=== PATIENT | female | born 1950 | race Caucasian/White ===

== ENCOUNTER 2018-01-10 07:30 | Inpatient (IN) | payer OTHER, MEDICARE ==
[2018-02-14] MEDS ORDERED: ACETAMINOPHEN 500 MG TAB PO ONE (06:10)
[2018-02-14] MEDS ORDERED: GABAPENTIN 300 MG CAP PO ONE (06:10)
[2018-02-14] MEDS ORDERED: ceFAZolin 2 GM/DEXTROSE 100 ML IV ONE (06:10)
[2018-02-14] MEDS ORDERED: LR 1,000 ML IV ONE (06:11)
[2018-02-14] MEDS ORDERED: CHLORHEXIDINE GLUC HIBICLENS 118 ML BTL TP ONE (06:36)
[2018-02-14] MEDS ORDERED: EPINEPHrine 1 MG/ML INJ ONE (06:36)
[2018-02-14] MEDS ORDERED: THROMBIN (BOVINE) 5,000 UNIT VIAL TP ONE (06:36)
[2018-02-14] MEDS ORDERED: BUPIVACAINE 0.25% 30 ML SDV ONE (06:36)
[2018-02-14] MEDS ORDERED: BACITRACIN 50,000 UNITS/10 ML SYR IRR ONE ×2 (06:36→09:16)
--- NOTE | 2018-02-14 06:45 | PDHPUP ---
History & Physical Update H&P update statement: This history and physical update is based on an assessment of the patient which was completed after admission or registration (within 24 hours), but prior to the surgery/procedure. H&P update: H&P reviewed & patient examined, no change in patient's condition since H&P completed
[2018-02-14] MEDS ORDERED: MIDAZOLAM 2 MG/2 ML VIAL IVP ONE (07:01)
--- NOTE | 2018-02-14 07:03 | PDANEPAE ---
ANE History of Present Illness L4-5 TLIF ANE Past Medical History - Cardiovascular History Hx Hypertension: No Hx Arrhythmias: No Hx Chest Pain: No Hx Coronary Artery / Peripheral Vascular Disease: No Hx CHF / Valvular Disease: No Hx Palpitations: No Cardiovascular History Comment: blood pressure is normal but went very low after surgery 05/2017 - Pulmonary History Hx COPD: No Hx Asthma/Reactive Airway Disease: No Hx Recent Upper Respiratory Infection: No Hx Oxygen in Use at Home: No Hx Sleep Apnea: No Sleep Apnea Screening Result - Last Documented: Negative Pulmonary History Comment: chronic cough from reflux - Neurologic History Hx Cerebrovascular Accident: No Hx Seizures: No Hx Dementia: No Neurologic History Comment: cervical stenosis causes neck pain at times - Endocrine History Hx Diabetes: No - Renal History Hx Renal Disorders: No - Liver History Hx Hepatic Disorders: No - Neurological & Psychiatric Hx Hx Neurological and Psychiatric Disorders: Yes Neurological / Psychiatric History Comment: tends to be anxious- no diagnosis - Cancer History Hx Cancer: No - Congenital Disorder History Hx Congenital Disorders: No - GI History Hx Gastrointestinal Disorders: Yes Gastrointestinal History Comment: reflux- chronic cough from - Other Health History Other Health History: wears bilateral hearing aides. wears glasses. old torn rtc on right. weak and painful left big toe when walking - Chronic Pain History Chronic Pain: Yes (lower back and legs and some neck) - Surgical History Prior Surgeries: [facility] ANE Review of Systems Review of Systems: - Exercise capacity METS (RN): 4 METS ANE Patient History - Allergies Allergies/Adverse Reactions: thimerosal Allergy (Verified 01/29/18 16:04) From contact lens solution - eyes red/itchy - Home Medications Home medications: home medication list seen and reviewed Home Medications: Ascorbic Acid [Vitamin C 500 mg (*)] 1,000 mg PO BID 01/22/18 [Last Taken ] C/E/Zn/Cu/OM3/DHA/EPA/LUT/ZEAX [Preservision Areds 2 Softgel] 1 each PO BID [Last Taken 02/07/18] Cholecalciferol Vit D3 [Vitamin D3 (*)] 1,000 units PO DAILY 01/22/18 [Last Taken 02/07/18] Eszopiclone [Lunesta] 2 mg PO HS 01/22/18 [Last Taken 02/13/18] Herbals/Supplements -Info Only 1 ea PO DAILY 01/22/18 [Last Taken 02/07/18] traZODone [traZODONE 50MG (*)] 100 - 150 mg PO HS 01/22/18 [Last Taken Unknown] - NPO status NPO Since - Liquids (Date): 02/14/18 NPO Since - Liquids (Time): 07:00 NPO Since - Solids (Date): 02/13/18 - Smoking Hx Smoking Status: Never smoked - Family Anes Hx Family Hx Anesthesia Complications: none ANE Labs/Vital Signs - Vital Signs Height: 166.37 cm Weight: 70.307 kg ANE Physical Exam - Airway Neck exam: FROM Mallampati Score: Class 2 Mouth exam: normal dental/mouth exam - Pulmonary Pulmonary: no respiratory distress - Cardiovascular Cardiovascular: regular rate and rhythym - ASA Status ASA Status: II ANE Anesthesia Plan Anesthesia Plan: general endotracheal anesthesia Lines/Monitors: additional IV
[2018-02-14] MEDS ORDERED: fentaNYL 100 MCG/2 ML INJ ONE ×2 (07:06→11:04)
[2018-02-14] MEDS ORDERED: ROCURONIUM 50 MG/5 ML VIAL ONE ×2 (07:06→07:10)
[2018-02-14] MEDS ORDERED: PROPOFOL/EMULSION 500 MG/50 ML BOTTLE IV ONE (07:06)
[2018-02-14] MEDS ORDERED: REMIFENTANIL HCL 1 MG VIAL ONE (07:06)
[2018-02-14] MEDS ORDERED: LIDOCAINE 2% 2 ML INJ ONE ×2 (07:11)
[2018-02-14] MEDS ORDERED: ONDANSETRON 4 MG/2 ML VIAL ONE (07:12)
[2018-02-14] MEDS ORDERED: DEXAMETHASONE 4 MG/ML VIAL ONE (07:12)
[2018-02-14] MEDS ORDERED: POLYETHYLENE GLYCOL 3350 17 GM PKT PO PRN (07:20)
[2018-02-14] MEDS ORDERED: diphenhydrAMINE 25 MG CAP PO PRN (07:20)
[2018-02-14] MEDS ORDERED: ONDANSETRON 4 MG/2 ML VIAL IVP PRN ×2 (07:20→10:38)
[2018-02-14] MEDS ORDERED: BISACODYL 10 MG SUPP PR PRN (07:20)
[2018-02-14] MEDS ORDERED: HYDROmorphone HCL 0.5 MG/0.5 ML SYR IVP PRN (07:20)
[2018-02-14] MEDS ORDERED: LACTULOSE 20 GM/30 ML UDCUP PO PRN (07:20)
[2018-02-14] MEDS ORDERED: ONDANSETRON DISINTEGRATING 4 MG TAB PO PRN (07:20)
[2018-02-14] MEDS ORDERED: MAGNESIUM HYDROXIDE 30 ML UDCUP PO PRN (07:20)
[2018-02-14] MEDS ORDERED: NS 1,000 ML IV SCH (07:30)
[2018-02-14] MEDS ORDERED: ePHEDrine SULFATE 25 MG/5 ML SYR ONE (07:51)
--- NOTE | 2018-02-14 08:01 | POSTANESTH ---
Post Anesthetic Evaluation Cardiovascular Status: Normal, Stable Respiratory Status: Normal, Stable Level of Consciousness/Mental Status: Can Participate in Eval, Mildly Sleepy, Arousable Pain Control: Adequate, Prn Tx Ordered Nausea/Vomiting Control: Adequate, Prn Tx Ordered Complications Possibly Related to Anesthesia: None Noted
[2018-02-14] MEDS ORDERED: PHENYLEPHRINE HCL 100 MCG/ML SYR ONE ×2 (08:28→10:02)
[2018-02-14] MEDS ORDERED: HYDROmorphONE/DILAUDID 2 MG/ML INJ ONE (08:29)
[2018-02-14] MEDS ORDERED: PROPOFOL 200 MG/20 ML VIAL ONE (09:12)
[2018-02-14] MEDS ORDERED: DIAZEPAM 5 MG/ML 1 ML SYR IVP PRN (10:38)
[2018-02-14] MEDS ORDERED: oxyCODONE IR 5 MG TAB PO PRN (10:38)
[2018-02-14] MEDS ORDERED: LABETALOL HCL 5 MG/ML 20 ML MDV IVP PRN (10:38)
[2018-02-14] MEDS ORDERED: PHENYLEPHRINE HCL 100 MCG/ML SYR IVP PRN (10:38)
[2018-02-14] MEDS ORDERED: LR 500 ML IV PRN (10:38)
[2018-02-14] MEDS ORDERED: ACETAMINOPHEN 500 MG TAB PO PRN (10:38)
[2018-02-14] MEDS ORDERED: NALOXONE HCL 0.4 MG/ML INJ IVP PRN (10:38)
[2018-02-14] MEDS ORDERED: PROMETHAZINE HCL 25 MG/ML INJ IVP PRN (10:38)
[2018-02-14] MEDS ORDERED: ALBUTEROL 3 ML DEYVIAL IH PRN (10:38)
[2018-02-14] MEDS: fentaNYL 100 MCG/2 ML INJ IVP PRN ×2 (11:06→11:12)
--- NOTE | 2018-02-14 11:06 | SOAPPROG ---
SOAP Progress Note Assessment/Plan: Post Op Visit: S: Awake and alert. Pt with expected lower back pain O: AFVSS/PERRLA/EOMI no droop CN 2-12 grossly intact +lt touch 5/5 BUE/BLE = CDI BETHANY in place and working well A/P: 67 yo female that is s/p TLIF at L4/5 -orders in place -brace when out of bed -call with any questions or concerns -pt understands and agrees -no bending or twisting 02/14/18 11:04 ICD10 Worksheet Patient Problems: Problems Problem Status Onset Arthrodesis status Acute Lumbar radicular pain Acute Lumbar stenosis Acute - ICD10 Problem Qualifiers (1) Lumbar radicular pain (2) Lumbar stenosis (3) Arthrodesis status
--- NOTE | 2018-02-14 11:07 | POSTOPPROG ---
Post Op Note Date of Operation: 02/14/18 Surgeon: Luis A Kapoor Infrastructure Software Engineer: Gaby Anesthesia: GET(General Endotracheal), Local (Specify) Pre-op Diagnosis: lumbar stenosis L4/5 Post-op Diagnosis: Lumbar stenosis L4/5 Indication: lumbar radiculopathy/stenosis Procedure: TLIF L4/5 Findings: none Inf/Abcess present in the surg proc area at time of surgery?: No Depth: Deep Incisional (Fascial) EBL: 100-500 Drains: Armaan White
[2018-02-14] MEDS ORDERED: HYDROmorphONE/DILAUDID 1 MG/ML INJ ONE (11:13)
[2018-02-14] MEDS: HYDROmorphONE/DILAUDID 2 MG/ML INJ IVP PRN ×2 (11:15→11:26)
[2018-02-14] MEDS ORDERED: DIAZEPAM 5 MG/ML 1 ML SYR ONE (11:30)
[2018-02-14] MEDS ORDERED: HYDROmorphONE/DILAUDID 1 MG/ML INJ IVP PRN (11:30)
[2018-02-14] MEDS ORDERED: oxyCODONE IR 5 MG TAB ONE (11:51)
--- NOTE | 2018-02-14 13:14 | PDMN ---
Medical Necessity Medical necessity: [facility] IP only surgery; cpt 50939 Lumbar Fusion (L4/5 TLIF)
[2018-02-14] MEDS: SENNOSIDES/DOCUSATE SODIUM TAB PO SCH ×2 (15:12→21:44)
[2018-02-14] MEDS: FAMOTIDINE 20 MG TAB PO SCH ×2 (15:12→21:42)
[2018-02-14] MEDS: ACETAMINOPHEN 500 MG TAB PO SCH ×2 (15:18→21:42)
[2018-02-14] MEDS: GABAPENTIN 300 MG CAP PO SCH ×3 (15:21→23:33)
[2018-02-14] MEDS: ceFAZolin 2 GM/DEXTROSE 100 ML IV SCH ×2 (17:34→23:25)
[2018-02-14] MEDS: oxyCODONE IR 5 MG TAB PO PRN (18:41)
[2018-02-14] MEDS ORDERED: ZOLPIDEM TARTRATE 5 MG TAB PO SCH (21:00)
[2018-02-14] MEDS: traZODone 50 MG TAB PO SCH (21:44)
[2018-02-14] MEDS: ESZOPICLONE 2 MG PO SCH (21:45)
--- NOTE | 2018-02-15 05:02 | GOP ---
DATE OF OPERATION: 02/14/2018 SURGEON: Fracisco Kapoor MD RN ALLERGY: Johnathan Griffin PA-C. PREOPERATIVE DIAGNOSIS: Lumbar spondylolisthesis, L4-5. Severe stenosis, L4-5. Bilateral lumbosacr al radiculopathy, L4-5. POSTOPERATIVE DIAGNOSIS: Lumbar spondylolisthesis, L4-5. Severe stenosis, L4-5. Bilateral lumbosacr al radiculopathy, L4-5. PROCEDURE PERFORMED: Posterolateral intervertebral arthrodesis with bilateral decompressions, L4-5 ( 71653); posterior nonsegmental instrumentation across a single interspace L4-5 (43543); spinal stereo taxis, placement of biomechanical intervertebral device, L4-5, same incision bone graft harvest, micr oscope. FINDINGS: Consistent with the MRI. ESTIMATED BLOOD LOSS: Less than 100 cc. INDICATIONS: The patient is a 67-year-old who had bilateral lumbosacral radiculopathy and severe emmanuel n radiating down both legs, whose MRI demonstrated a spondylolisthesis at L4-5, severe stenosis at th at level and I suggested a single-level fusion with bilateral decompressions. The risk of continued symptoms was discussed. She knew there was a chance surgery would fail to eliminate the pain. She k new there was a risk of nerve injury, spinal fluid leak, infection, pseudoarthrosis, and adjacent seg ment disease. She wanted to proceed despite these risks. DESCRIPTION OF PROCEDURE: The patient was taken to the operating room, placed in supine position. G eneral anesthesia was begun. She was flipped prone onto the Armaan table. Care was taken to pad al l points of contact. Her back was sterilely prepped and draped in usual fashion. A localizing x-ray was taken. We made a midline incision. It was approximately 4 cm in length. The subcutaneous tiss ue was dissected using Bovie cautery down to the fascia and subperiosteal dissection was made down th e L4-5 lamina. Self-retaining retractor was placed. We shot a localizing x-ray. We denuded the tyson ateral hypertrophic L4-5 facet joint, decorticated transverse processes at L4-5. We attached the John alth reference frame to the L4 spinous process. We performed an O-arm spin and using frame of the [facility] stereotaxy, we placed pedicle screws bilaterally at L4 and L5. They all stimulated at acceptab le levels. The screws were in excellent position. We placed rods down over the screws and did not r eally distract. We simply tightened the rods down on the tulips. Her bone was quite soft when placi ng the screws and we did not want to distract. As we tightened the set screws down over the rods, th ere was some reduction of her spondylolisthesis and we were happy with the way the x-rays looked. We removed all the soft tissue from the bone at L4-5, harvested the inferior L4 spinous process for aut ologous grafting purposes. We drilled bilateral L4 laminectomy and harvested this bone for autologou s grafting purposes. Under the microscope, we opened the ligamentum flavum and decompressed the thec al sac. There was severe stenosis on each side. The dura had an hourglass appearance of the area ju st above and at the level of the L5 pedicle. We got a great decompression. We then swept the nerve root medially, incised the L4-5 disk and removed the disk and the cartilaginous endplates at L4-5. W e roughened the subchondral bone to create arthrodesis and chose a 7 x 23 mm device. We inserted it at L4-5, expanded it under fluoroscopic guidance. Bone morphogenic protein was placed in the disk sp dawna. 1 mg was placed there. 1 mg was placed posterolaterally. Bone autograft was also placed in th e disk space. We placed bone autograft posterolaterally after decorticating all the posterolateral b one. We then placed a subfascial drain, closed the incision in multiple layers using Vicryl sutures. Final x-rays were taken. All hardware was in excellent position. There were no complications. COMPLICATIONS: None. INSTRUMENTATION USED: Solera 5.5 mm system with titanium rods, extra-small bone morphogenic protein and a 7 x 23 mm Elevate cage, all manufactured by [employer]. COMPLICATIONS: None. /[id number]/MODL
[2018-02-15] MEDS: ACETAMINOPHEN 500 MG TAB PO SCH ×3 (05:12→22:02)
[2018-02-15] MEDS: SENNOSIDES/DOCUSATE SODIUM TAB PO SCH ×2 (08:20→20:37)
[2018-02-15] MEDS: METHOCARBAMOL 750 MG TAB PO PRN ×2 (08:20→14:30)
[2018-02-15] MEDS: FAMOTIDINE 20 MG TAB PO SCH ×2 (08:20→20:37)
[2018-02-15] MEDS ORDERED: CALCIUM CARBONATE 500 MG CHEWABLE TAB PO PRN (09:26)
--- NOTE | 2018-02-15 09:30 | NEUSURGPN ---
Date of Surgery: 02/14/18 Post Op Day: 1 Assessment/Plan: Assessment: 67 yo female that is s/p TLIF at L4/5 POD #1 Plan: -s/p TLIF L4/5-pt states she has some expected lower back pain, legs feel fine -PT/OT pending -orders in place -brace when out of bed -post op xrays pending -call with any questions or concerns -pt understands and agrees -no bending or twisting Subjective: Awake and alert. NAD. Eating/drinking and voiding. No f/c/n/v/d. No anderson/neck/ chest/abd of gu complaints. Objective: AFVSS/PERRLA/EOMI no droop CN 2-12 grossly intact +lt touch 5/5 BUE/BLE = CDI BETHANY in place and working well-will dc later today Neuro Check Frequency: per routine Urinary Catheter in Place: No - Physician Discussed Patient with .: Antwon Patient Seen by .: Antwon Neurosurgery Physical Exam - Vitals, I&O, Labs I and O 02/14/18 02/15/18 02/16/18 05:59 05:59 05:59 Intake Total 5101 Output Total 4235 Balance 866 Weight 70.307 kg Intake: Oral (ml) 2750 IV Intake (ml) 1600 IV Infused (ml) 751 Lr 1,000 ml @ TKO IV ONCE 751 ONE Rx#:[id number] Output: Urine (ml) 3875 Toilet 3875 Estimated Blood Loss (ml) 100 BETHANY Drain Output (ml) 260 #1 Back Armaan White 260 Other: Number of Voids Toilet 1 Vital Signs Temp Pulse Resp BP Pulse Ox 37.1 C 74 16 117/82 H 92 02/15/18 08:00 02/15/18 08:00 02/15/18 08:00 02/15/18 08:00 02/15/18 08:00 ICD10 Worksheet Patient Problems: Problems Problem Status Onset Arthrodesis status Acute Lumbar radicular pain Acute Lumbar stenosis Acute - ICD10 Problem Qualifiers (1) Lumbar radicular pain (2) Lumbar stenosis (3) Arthrodesis status
--- NOTE | 2018-02-15 14:13 | ASMTCMCOM ---
CM Note CM Note Notes: Pt s/p planned surgery for stenosis, DDD. [facility] with [facility] safety and bathing. Candelaria with [facility] visited with pt today. [facility] has protocol with MD office so no orders needed at d/c D/c plan of care: Home with [facility] Date Signed: 02/15/2018 02:12 PM Electronically Signed By:BLADIMIR Rosales
[2018-02-15] MEDS: GABAPENTIN 300 MG CAP PO SCH ×2 (14:25→23:04)
[2018-02-15] MEDS: oxyCODONE IR 5 MG TAB PO PRN (18:16)
[2018-02-15] MEDS: traZODone 50 MG TAB PO SCH (22:01)
[2018-02-15] MEDS: ESZOPICLONE 2 MG PO SCH (22:21)
[2018-02-16] MEDS: ACETAMINOPHEN 500 MG TAB PO SCH (05:35)
[2018-02-16] MEDS: METHOCARBAMOL 750 MG TAB PO PRN (05:35)
[2018-02-16] MEDS: GABAPENTIN 300 MG CAP PO SCH (07:05)
--- NOTE | 2018-02-16 07:26 | NEUSURGPN ---
Date of Surgery: 02/14/18 Post Op Day: 2 Assessment/Plan: Assessment: 67 yo female that is s/p TLIF at L4/5 POD #2 Plan: -neuro stable -PT/OT -brace when out of bed -post op xrays stable -call with any questions or concerns -plan for discharge today Subjective: Doing well this morning. No LE symptoms. Walking around room. Objective: Awake. Alert. PERRL. EOMI Walking with ease Muscle strength full - Physician Discussed Patient with Dr.: Antwon Neurosurgery Physical Exam - Vitals, I&O, Labs I and O 02/15/18 02/16/18 02/17/18 05:59 05:59 05:59 Intake Total 5101 2850 Output Total 4235 2800 Balance 866 50 Weight 70.307 kg Intake: Oral (ml) 2750 2850 IV Intake (ml) 1600 IV Infused (ml) 751 Lr 1,000 ml @ TKO IV ONCE 751 ONE Rx#:[id number] Output: Urine (ml) 3875 2800 Toilet 3875 2800 Estimated Blood Loss (ml) 100 BETHANY Drain Output (ml) 260 #1 Back Armaan White 260 Other: Number of Voids Toilet 1 1 Vital Signs Temp Pulse Resp BP Pulse Ox 36.9 C 82 16 110/62 92 02/15/18 22:55 02/15/18 22:55 02/15/18 22:55 02/15/18 22:55 02/15/18 22:55 ICD10 Worksheet Patient Problems: Problems Problem Status Onset Arthrodesis status Acute Lumbar radicular pain Acute Lumbar stenosis Acute
[2018-02-16 07:51] VITALS: BP 131/79
[2018-02-16] MEDS: FAMOTIDINE 20 MG TAB PO SCH (08:48)
[2018-02-16] MEDS: SENNOSIDES/DOCUSATE SODIUM TAB PO SCH (08:48)
--- NOTE | 2018-02-16 09:55 | ASMTLACE ---
LACE Length of stay for Answers: 3 days current admission Acuity / Level of Answers: Yes Care: Did the patient have an inpatient admission? Comorbidities - select Answers: Opioid dependence all that apply / Chronic pain # of Emergency department Answers: 0 visits in the last 6 months Score: 10 Date Signed: 02/16/2018 09:54 AM Electronically Signed By:BLADIMIR Rosales
--- NOTE | 2018-02-16 10:31 | ASMTCMCOM ---
CM Note CM Note Notes: Pt medically stable for d/c with [facility]. [facility] has protocol with MD office so no orders needed. Date Signed: 02/16/2018 10:31 AM Electronically Signed By:BLADIMIR Rosales
[2018-02-16] MEDS: oxyCODONE IR 5 MG TAB PO PRN (12:52)
--- NOTE | 2018-02-16 14:49 | ASDISCHSUM ---
Discharge Information Plan Status:Home with Home Health Medically Cleared to Leave: Discharge Date:02/16/2018 01:18 PM CM D/C Disposition: ADT [facility] Discharge Date:02/16/2018 11:00 AM Transportation at D/C: Discharge Delay Reason: Follow-Up Date:02/16/2018 11:00 AM Discharge Slot: Final Diagnosis: Placement Information Referral Type:*Home Health Care Services Referral ID:[id number] Provider Name:[facility]) Address 1:[address] [facility] Address 2:[facility] [address] City:[place] Selection Factors: State:[place] Patient Contact Information Contact Name:MALCOLM Relationship: Address: Work Phone: City: [facility] Phone: [facility] Code: Email: Financial Information Financial Class:Medicare Primary Plan Desc:MEDICARE INPATIENT Primary Plan Number:[id number] Secondary Plan Desc:[employer]/MDR SUPPLEMENT Secondary Plan Number:[id number] Assessment Information LACE LACE Length of stay for Answers: 3 days current admission Acuity / Level of Answers: Yes Care: Did the patient have an inpatient admission? Comorbidities - select Answers: Opioid dependence all that apply / Chronic pain # of Emergency department Answers: 0 visits in the last 6 months Score: 10 Date Signed: 02/16/2018 09:54 AM Electronically Signed By:BLADIMIR Rosales [facility] CM Progress Note CM Note CM Note Notes: Pt s/p planned surgery for stenosis, DDD. PT rec outpatient. [facility] was pre-arranged by MD office, pt does want the [facility] to assist with home safety and bathing. Candelaria with [facility] visited with pt today. [facility] has protocol with MD office so no orders needed at d/c D/c plan of care: Home with [facility] Date Signed: 02/15/2018 02:12 PM Electronically Signed By:BLADIMIR Rosales [facility] CM Progress Note CM Note CM Note Notes: Pt medically stable for d/c with [facility]. [facility] has protocol with MD office so no orders needed. Date Signed: 02/16/2018 10:31 AM Electronically Signed By:BLADIMIR Rosales Intervention Information Intervention Type:*IM-Signed Date of Service:02/16/2018 12:00 PM Patient Type:Inpatient Staff Member:Diane Machado Hours: Discipline: Severity: Comment:
[2018-02-17] MEDS ORDERED: ENOXAPARIN 40 MG/0.4 ML SYR SC SCH (09:00)
== END 2018-02-16 13:18 | disposition home health service (06) | DRG 460 ==
LOC: F3N 02-14 05:49
PROVIDERS: ADMIT Neurological Surgery; ATTEND Neurological Surgery
PROC: 0ST20ZZ Resection of Lumbar Vertebral Disc, Open Approach (ICD-10-PCS; principal; 2018-02-14 07:15)
PROC: 3E0U0GB Introduction of Recombinant Bone Morphogenetic Protein into Joints, Open Approach (ICD-10-PCS; principal; 2018-02-14 07:15)
PROC: 01NB0ZZ Release Lumbar Nerve, Open Approach (ICD-10-PCS; principal; 2018-02-14 07:15)
PROC: 0QB00ZZ Excision of Lumbar Vertebra, Open Approach (ICD-10-PCS; principal; 2018-02-14 07:15)
PROC: 0SG00AJ Fusion of Lumbar Vertebral Joint with Interbody Fusion Device, Posterior Approach, Anterior Column, Open Approach (ICD-10-PCS; principal; 2018-02-14 07:15)
DX: M43.16 Spondylolisthesis, lumbar region (principal); M51.16 Intervertebral disc disorders with radiculopathy, lumbar region; M48.062 Spinal stenosis, lumbar region with neurogenic claudication
CPT/HCPCS: 97161-GP; 97166-GO; C1713; G8978-GP-CI; G8979-GP-CI; G8980-GP-CI; G8987-GO-CI; G8988-GO-CI; G8989-GO-CI; J0171; J0690; J1100; J1170; J2250; J2370; J2405; J2704; J3010; J3360